=== PATIENT | female | born 1995 | race Caucasian/White ===

== ENCOUNTER 2024-01-03 02:34 | Emergency (ER) | payer SELFPAY ==
[2024-01-03] MEDS ORDERED: Ketorolac Tromethamine 30 MG (1 mL) VIAL ONE (03:24)
== END 2024-01-03 03:46 | disposition home or self-care (01) ==
LOC: ERS 02:34
DX: K04.7 Periapical abscess without sinus (principal)
CPT/HCPCS: 96372; 99282; J1885

== ENCOUNTER 2024-07-27 03:10 | Emergency (ER) | payer SELFPAY | END 2024-07-27 04:01 | disposition left against medical advice (07) | LOC: ERS 03:10 | DX: Z53.21 Procedure and treatment not carried out due to patient leaving prior to being seen by health care provider (principal) ==